=== PATIENT | male | born 1935 | race Caucasian/White ===

== ENCOUNTER 2018-07-18 13:40 | Outpatient (CLI) | payer OTHER | END 2018-07-18 13:41 | disposition home or self-care (01) | LOC: BICULT 13:40 | PROVIDERS: ATTEND Family Medicine | DX: M79.604 Pain in right leg (principal) | CPT/HCPCS: 36415; 85025; 85379 ==

== ENCOUNTER 2018-09-12 10:19 | Outpatient (CLI) | payer OTHER ==
--- NOTE | 2018-09-12 12:15 | RAD ---
CHEST TWO VIEWS: HISTORY: Cough. Fever. COMPARISON: 01/19/2017 FINDINGS: The cardiac silhouette is at the upper limits of normal in size. The pulmonary vasculature remains a t the upper limits of normal and is accentuated by shallow inspiration. Mild diffuse reticulonodular interstitial prominence is similar in appearance to the previous exam. The mediastinum is midline w ith postoperative changes and aortic calcification. Postoperative changes, left shoulder. IMPRESSION: 1. Mild pulmonary vascular congestion. 2. Atherosclerosis. 3. No lobar pneumonia is evident. POS: JANIS
== END 2018-09-12 10:20 | disposition home or self-care (01) ==
LOC: BICRAD 10:19
PROVIDERS: ATTEND Family Medicine
DX: R68.83 Chills (without fever) (principal); R09.89 Other specified symptoms and signs involving the circulatory and respiratory systems; I70.0 Atherosclerosis of aorta
CPT/HCPCS: 36415; 71046; 80053; 84439; 84443; 84481; 85025; 86140

== ENCOUNTER 2019-07-30 16:00 | Outpatient (CLI) | payer OTHER | END 2019-07-30 16:01 | disposition home or self-care (01) | LOC: SLEEPLAB 16:00 | PROVIDERS: ATTEND Internal Medicine Critical Care Medicine | DX: G47.33 Obstructive sleep apnea (adult) (pediatric) (principal); I25.10 Atherosclerotic heart disease of native coronary artery without angina pectoris; R09.02 Hypoxemia | CPT/HCPCS: 95806 ==

== ENCOUNTER 2019-08-25 20:30 | Outpatient (CLI) | payer OTHER | END 2019-08-25 20:31 | disposition home or self-care (01) | LOC: SLEEPLAB 20:30 | PROVIDERS: ATTEND Internal Medicine Critical Care Medicine | DX: G47.33 Obstructive sleep apnea (adult) (pediatric) (principal) | CPT/HCPCS: 95811 ==

== ENCOUNTER 2020-05-25 09:29 | Outpatient (CLI) | payer OTHER ==
--- NOTE | 2020-05-25 10:40 | RAD ---
LUMBAR SPINE: AP and lateral views obtained weightbearing. INDICATION: Low back pain. FINDINGS: Moderately severe hypertrophic degenerative changes of lumbar spine. There is scoliotic curvature wi th convexity to the right measured at 34 degrees. This results in left lateral compression of the L1 and L2 vertebrae, most pronounced at L2. Loss of disk space at all levels. Prominent hypertrophic spurring is seen anteriorly and laterally at all levels. Prominent facet hypertrophy. There is evid ence of central canal stenosis throughout the lumbar spine most prominent at L3-4 and L4-5 due to the posterior hypertrophic change. Aorta shows evidence of fusiform aneurysmal dilatation measuring up to 3 cm with calcification. IMPRESSION: 1. 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 2. 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 POS: AH
== END 2020-05-25 09:30 | disposition home or self-care (01) ==
LOC: BICRAD 09:29
PROVIDERS: ATTEND Family Medicine
DX: M54.5 Low back pain (principal); M47.816 Spondylosis without myelopathy or radiculopathy, lumbar region; I77.811 Abdominal aortic ectasia; M41.56 Other secondary scoliosis, lumbar region
CPT/HCPCS: 72100

== ENCOUNTER 2020-07-07 10:17 | Emergency (ER) | payer OTHER, MEDICARE ==
--- NOTE | 2020-07-07 11:10 | CT ---
CT PULMONARY ANGIOGRAM WITH IV CONTRAST AND 3-D POSTPROCESSING: HISTORY:Dyspnea FINDINGS: There is good contrast opacification of the pulmonary arterial vasculature without filling defects to suggest pulmonary embolism. The thoracic aorta is not opacified and is without aneurysm . 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 No pleural or pericardial effusions are seen. No pneumothoraces, focal areas of consolidation or lung nodules are noted. There are degenerative changes in the spine. There is a small amount of herniated fat adjacent to the esophagus in the right posterior mediastinum. IMPRESSION: No CT evidence of pulmonary embolism.
[2020-07-07] MEDS ORDERED: Iopamidol-370 76% 500 ML 1 ML ONE (14:16)
== END 2020-07-07 12:00 | disposition home or self-care (01) ==
LOC: ERS 10:17
DX: R06.00 Dyspnea, unspecified (principal); I48.91 Unspecified atrial fibrillation; E11.9 Type 2 diabetes mellitus without complications; I10 Essential (primary) hypertension; Z87.891 Personal history of nicotine dependence; Z79.899 Other long term (current) drug therapy
CPT/HCPCS: 71275; 94760; Q9967

== ENCOUNTER 2021-01-31 12:57 | Outpatient (CLI) | payer OTHER | END 2021-01-31 12:58 | disposition home or self-care (01) | LOC: BICRAD 12:57 | PROVIDERS: ATTEND Internal Medicine Critical Care Medicine | DX: R06.00 Dyspnea, unspecified (principal); I51.7 Cardiomegaly | CPT/HCPCS: 71046 ==

== ENCOUNTER 2021-02-08 17:02 | Inpatient (IN) | payer OTHER, MEDICARE ==
[2021-02-08 17:15] VITALS: BMI 29.7
[2021-02-08] MEDS ORDERED: Dextrose 50% Abboject 50 ML SYRINGE SLOW IVP PRN (21:56)
[2021-02-08] MEDS ORDERED: HumaLOG 300 UNITS/3 ML VIAL SC PRN (21:56)
[2021-02-08] MEDS ORDERED: Dextrose 5% in Water 1,000 ML IV PRN (21:56)
[2021-02-08] MEDS ORDERED: Loratadine 10 MG TAB PO PRN (21:57)
[2021-02-08] MEDS ORDERED: Adacel (T-DAP) 0.5 ML SYRINGE IM ONE (22:00)
[2021-02-08] MEDS ORDERED: Senokot S 8.6-50 MG TAB PO PRN (22:03)
[2021-02-08] MEDS ORDERED: Ondansetron PF 4 MG/2 ML Vial IVP PRN (22:03)
[2021-02-08] MEDS ORDERED: Calcium Carbonate 500 MG ChewTAB PO PRN (22:03)
[2021-02-08] MEDS ORDERED: Ondansetron ODT 4 MG TAB PO PRN (22:03)
[2021-02-08 22:18] LABS: Hemoglobin 12.4 g/dL (14.0-18.0); Mean Corpuscular HGB CONC 31.2 g/dL (32.0-36.0); Mean Corpuscular Hemoglobin 27.5 pg (27.0-31.0); Mean Corpuscular Volume 88.1 fL (78.0-98.0); RBC Distribution Width 15.8 % (11.5-14.5); Red Blood Cell (RBC) Count 4.51 mill/uL (4.70-6.10)
[2021-02-08 22:22] LABS: Anion Gap 14 mmol/L (10-20); BUN (Urea Nitrogen) 23 mg/dL (8.4-25.7); CRP (Inflammatory) 22.71 mg/dL (= or < 0.5); Calc. Creatinine Clearance 65 mL/min (70-130); Calcium 9.2 mg/dL (7.8-10.44); Carbon Dioxide 26 mmol/L (23-31); Chloride 103 mmol/L (98-107); Glucose 182 mg/dL (83-110); Magnesium 2.3 mg/dL (1.6-2.6); Potassium 3.8 mmol/L (3.5-5.1); Sodium 139 mmol/L (136-145)
[2021-02-08 22:28] LABS: Troponin I 0.046 ng/mL (< 0.028)
[2021-02-08] MEDS: Acetaminophen 325 MG TAB PO PRN (22:28)
[2021-02-08] MEDS: Piperacillin/Tazobactam 3.375 GM in Sodium Chloride 0.9% 100 ML IVPB SCH (22:29)
[2021-02-08 22:39] LABS: Band 15 % (5-11); Lymphocytes 6 % (21-51); MDiff Complete? YES; Mean Platelet Volume 8.3 fL (7.4-10.4); Monocytes 3 % (0-10); Neutrophil 76 % (42-75); Platelet Count 193 thou/uL (130-400); White Blood Cell (WBC) Count 12.5 thou/uL (4.8-10.8)
[2021-02-09] MEDS: Vancomycin 1.5 GRAM/300 ML BAG 1.5 GM in Premix Bag 1 BAG IVPB SCH ×2 (00:52→23:31)
[2021-02-09] MEDS: Piperacillin/Tazobactam 3.375 GM in Sodium Chloride 0.9% 100 ML IVPB SCH ×2 (05:32→09:09)
[2021-02-09] MEDS: Methocarbamol 500 MG TAB PO SCH ×2 (08:58→21:01)
[2021-02-09] MEDS: Finasteride 5 MG TAB PO SCH (08:58)
[2021-02-09] MEDS: Aspirin 325 mg Enteric Coated Tablet PO SCH (08:58)
[2021-02-09] MEDS: Amlodipine 10 MG TAB PO SCH (08:59)
[2021-02-09] MEDS: Gabapentin 300 MG CAP PO SCH ×2 (08:59→21:00)
[2021-02-09] MEDS: Losartan 25 MG TAB PO SCH ×2 (09:00→21:02)
[2021-02-09] MEDS ORDERED: Enoxaparin Sodium 40 MG/0.4 ML SYRINGE SC SCH (09:00)
[2021-02-09] MEDS: Torsemide 20 MG TAB PO SCH (09:00)
[2021-02-09] MEDS: Metoprolol Tartrate 50 MG TAB PO SCH ×2 (09:01→21:01)
[2021-02-09] MEDS: Atorvastatin Calcium 20 MG TAB PO SCH (09:01)
[2021-02-09] MEDS: Potassium Bicarbonate/Cit Ac 20 MEQ TAB PO SCH (09:01)
[2021-02-09] MEDS: rOPINIRole HCl 0.25 MG TAB PO SCH (09:08)
[2021-02-09] MEDS ORDERED: Vancomycin 1 GM in Premix Bag 1 BAG IVPB SCH (10:00)
[2021-02-09 10:09] LABS: #Eosinphils 0.1 thou/uL (0.0-0.7); #Lymphocytes 0.8 thou/uL (1.20-3.40); #Monocytes 0.8 thou/uL (0.11-0.59); #Neutrophils 7.4 thou/uL (1.40-6.50); %Basophils 0.1 % (0.0-1.0); %Lymphocytes 9.1 % (21.0-51.0); %Monocytes 8.7 % (0.0-10.0); %Neutrophils 81.2 % (42.0-75.0); Hemoglobin 11.5 g/dL (14.0-18.0); Mean Corpuscular HGB CONC 30.9 g/dL (32.0-36.0); Mean Corpuscular Hemoglobin 27.6 pg (27.0-31.0); Mean Corpuscular Volume 89.3 fL (78.0-98.0); Mean Platelet Volume 8.6 fL (7.4-10.4); Platelet Count 162 thou/uL (130-400); RBC Distribution Width 15.7 % (11.5-14.5); Red Blood Cell (RBC) Count 4.16 mill/uL (4.70-6.10); White Blood Cell (WBC) Count 9.2 thou/uL (4.8-10.8)
[2021-02-09 10:41] LABS: Anion Gap 9 mmol/L (10-20); BUN (Urea Nitrogen) 22 mg/dL (8.4-25.7); Calc. Creatinine Clearance 67 mL/min (70-130); Carbon Dioxide 32 mmol/L (23-31); Chloride 103 mmol/L (98-107); Glucose 150 mg/dL (83-110); Potassium 3.6 mmol/L (3.5-5.1); Sodium 140 mmol/L (136-145)
[2021-02-09] MEDS ORDERED: cefTRIAXone\\ROCEPHIN 1 GM in Sodium Chloride 0.9% 100 ML IVPB SCH (12:00)
[2021-02-10 04:47] LABS: #Eosinphils 0.2 thou/uL (0.0-0.7); #Monocytes 0.9 thou/uL (0.11-0.59); #Neutrophils 6.1 thou/uL (1.40-6.50); %Basophils 0.3 % (0.0-1.0); %Eosinophils 2.1 % (0.0-10.0); %Lymphocytes 12.4 % (21.0-51.0); %Monocytes 11.3 % (0.0-10.0); %Neutrophils 73.8 % (42.0-75.0); Hemoglobin 10.1 g/dL (14.0-18.0); Mean Corpuscular HGB CONC 30.8 g/dL (32.0-36.0); Mean Corpuscular Hemoglobin 27.3 pg (27.0-31.0); Mean Corpuscular Volume 88.5 fL (78.0-98.0); Mean Platelet Volume 8.8 fL (7.4-10.4); Platelet Count 155 thou/uL (130-400); RBC Distribution Width 15.3 % (11.5-14.5); White Blood Cell (WBC) Count 8.3 thou/uL (4.8-10.8)
[2021-02-10 05:07] LABS: Anion Gap 14 mmol/L (10-20); BUN (Urea Nitrogen) 29 mg/dL (8.4-25.7); Calc. Creatinine Clearance 61 mL/min (70-130); Calcium 8.4 mg/dL (7.8-10.44); Carbon Dioxide 26 mmol/L (23-31); Chloride 102 mmol/L (98-107); Glucose 169 mg/dL (83-110); Potassium 3.7 mmol/L (3.5-5.1); Sodium 138 mmol/L (136-145)
[2021-02-10 05:16] LABS: Troponin I 0.035 ng/mL (< 0.028)
[2021-02-10] MEDS: Acetaminophen 325 MG TAB PO PRN ×2 (06:01→20:31)
[2021-02-10] MEDS: Amlodipine 10 MG TAB PO SCH (09:16)
[2021-02-10] MEDS: Methocarbamol 500 MG TAB PO SCH ×2 (09:16→20:54)
[2021-02-10] MEDS: Losartan 25 MG TAB PO SCH ×2 (09:17→20:32)
[2021-02-10] MEDS: Torsemide 20 MG TAB PO SCH (09:17)
[2021-02-10] MEDS: Gabapentin 300 MG CAP PO SCH ×2 (09:18→20:31)
[2021-02-10] MEDS: Finasteride 5 MG TAB PO SCH (09:19)
[2021-02-10] MEDS: Atorvastatin Calcium 20 MG TAB PO SCH (09:19)
[2021-02-10] MEDS: Potassium Bicarbonate/Cit Ac 20 MEQ TAB PO SCH (09:19)
[2021-02-10] MEDS: Cefepime 1 GM in Sodium Chloride 0.9% 100 ML IVPB SCH ×2 (09:19→20:31)
[2021-02-10] MEDS: Aspirin 325 mg Enteric Coated Tablet PO SCH (09:19)
[2021-02-10] MEDS: Metoprolol Tartrate 50 MG TAB PO SCH ×2 (09:23→20:32)
[2021-02-10] MEDS: rOPINIRole HCl 0.25 MG TAB PO SCH (09:23)
[2021-02-10 22:06] LABS: Vancomycin, Trough 9.8 ug/mL
[2021-02-10] MEDS: Vancomycin 1 GM in Premix Bag 1 BAG IVPB SCH (22:43)
[2021-02-11] MEDS: Aspirin 325 mg Enteric Coated Tablet PO SCH (09:24)
[2021-02-11] MEDS: Amlodipine 10 MG TAB PO SCH (09:24)
[2021-02-11] MEDS: Atorvastatin Calcium 20 MG TAB PO SCH (09:26)
[2021-02-11] MEDS: Gabapentin 300 MG CAP PO SCH ×2 (09:26→20:53)
[2021-02-11] MEDS: Finasteride 5 MG TAB PO SCH (09:26)
[2021-02-11] MEDS: Methocarbamol 500 MG TAB PO SCH ×2 (09:27→20:55)
[2021-02-11] MEDS: Metoprolol Tartrate 50 MG TAB PO SCH ×2 (09:27→20:56)
[2021-02-11] MEDS: Losartan 25 MG TAB PO SCH ×2 (09:27→20:54)
[2021-02-11] MEDS: Potassium Bicarbonate/Cit Ac 20 MEQ TAB PO SCH (09:28)
[2021-02-11] MEDS: Torsemide 20 MG TAB PO SCH (09:28)
[2021-02-11] MEDS: rOPINIRole HCl 0.25 MG TAB PO SCH (09:28)
[2021-02-11] MEDS: Cefepime 1 GM in Sodium Chloride 0.9% 100 ML IVPB SCH ×2 (09:29→20:53)
[2021-02-11] MEDS ORDERED: Magnevist 469MG/ML 20 ML VIAL ONE (10:18)
[2021-02-11] MEDS: Vancomycin 1 GM in Premix Bag 1 BAG IVPB SCH ×2 (11:43→22:33)
[2021-02-11] MEDS: HumaLOG 300 UNITS/3 ML VIAL SC PRN ×2 (11:44→17:00)
[2021-02-12] MEDS: Atorvastatin Calcium 20 MG TAB PO SCH (07:52)
[2021-02-12] MEDS: Amlodipine 10 MG TAB PO SCH (07:52)
[2021-02-12] MEDS: Aspirin 325 mg Enteric Coated Tablet PO SCH (07:52)
[2021-02-12] MEDS: Losartan 25 MG TAB PO SCH (07:53)
[2021-02-12] MEDS: Finasteride 5 MG TAB PO SCH (07:53)
[2021-02-12] MEDS: Gabapentin 300 MG CAP PO SCH (07:53)
[2021-02-12] MEDS: rOPINIRole HCl 0.25 MG TAB PO SCH (07:55)
[2021-02-12] MEDS: Torsemide 20 MG TAB PO SCH (07:55)
[2021-02-12] MEDS: Metoprolol Tartrate 50 MG TAB PO SCH (07:55)
[2021-02-12] MEDS: Methocarbamol 500 MG TAB PO SCH (07:55)
[2021-02-12] MEDS: Potassium Bicarbonate/Cit Ac 20 MEQ TAB PO SCH (07:55)
[2021-02-12] MEDS: Cefepime 1 GM in Sodium Chloride 0.9% 100 ML IVPB SCH (07:56)
[2021-02-12 10:30] LABS: Vancomycin, Trough 12.8 ug/mL
[2021-02-12] MEDS ORDERED: VANCOMYCIN 1.25 GM/250 ML BAG 1.25 GM in Premix Bag 1 BAG IVPB SCH (11:00)
[2021-02-12] MEDS: Vancomycin 1 GM in Premix Bag 1 BAG IVPB SCH (11:15)
[2021-02-12 11:46] VITALS: BP 151/67; TEMP 98.9
[2021-02-12] MEDS: HumaLOG 300 UNITS/3 ML VIAL SC PRN (12:46)
== END 2021-02-12 14:02 | disposition home or self-care (01) | DRG 871 ==
LOC: 2NO 17:05
PROVIDERS: ADMIT Internal Medicine; ATTEND Internal Medicine
DX: A41.9 Sepsis, unspecified organism (principal); I50.33 Acute on chronic diastolic (congestive) heart failure; L03.116 Cellulitis of left lower limb; I25.810 Atherosclerosis of coronary artery bypass graft(s) without angina pectoris; L97.429 Non-pressure chronic ulcer of left heel and midfoot with unspecified severity; I48.91 Unspecified atrial fibrillation; I11.0 Hypertensive heart disease with heart failure; E78.5 Hyperlipidemia, unspecified; E11.40 Type 2 diabetes mellitus with diabetic neuropathy, unspecified; E11.621 Type 2 diabetes mellitus with foot ulcer; K21.9 Gastro-esophageal reflux disease without esophagitis; G25.81 Restless legs syndrome; N40.0 Benign prostatic hyperplasia without lower urinary tract symptoms; J30.9 Allergic rhinitis, unspecified; T21.24XA Burn of second degree of lower back, initial encounter; E87.6 Hypokalemia; C61 Malignant neoplasm of prostate; E11.59 Type 2 diabetes mellitus with other circulatory complications; I25.5 Ischemic cardiomyopathy; Z96.653 Presence of artificial knee joint, bilateral; R65.20 Severe sepsis without septic shock; Z95.1 Presence of aortocoronary bypass graft; Z79.82 Long term (current) use of aspirin; Z95.5 Presence of coronary angioplasty implant and graft; Z88.8 Allergy status to other drugs, medicaments and biological substances; Z79.84 Long term (current) use of oral hypoglycemic drugs; Z79.01 Long term (current) use of anticoagulants; Z95.2 Presence of prosthetic heart valve
CPT/HCPCS: 36415; 36416; 80048; 80202; 83605; 83735; 84145; 84443; 84484; 85025; 85652; 86140; 93306; A9579; J0692; J0696; J1815; J2543; J3370; J3490